=== PATIENT | female | born 1985 | race Caucasian/White ===

== ENCOUNTER → 2023-07-14 14:32 | Outpatient (CLI) | payer OTHER, MEDICAID, SELFPAY | PROVIDERS: PCP Physician Assistant; Visit Provider Physician Assistant | DX: R35.0 Frequency of micturition (principal) | CPT/HCPCS: 81002; 87086 ==

== ENCOUNTER → 2023-07-16 11:07 | Outpatient (CLI) | payer OTHER, MEDICAID, SELFPAY ==
[2023-07-16 20:49] LABS: Hematocrit 41.6 % (36-46); Hemoglobin 14.1 g/dL (12.0-16.0); Mean Corpuscular Hemoglobin 31.2 PG (26-34); Mean Corpuscular Volume 91.7 fL (80-100); Platelet Count 157 X10^3/uL (150-400); Red Blood Cell Count 4.53 X10^6/uL (4.0-5.2); Red Cell Distribution Width 12.9 % (11.6-14.8)
[2023-07-16 21:02] LABS: Alanine Aminotransferase 15 IU/L (<35); Albumin 4.2 g/dL (3.5-5.0); Albumin Globulin Ratio 1.5 (1.0-2.8); Alkaline Phosphatase 72 U/L (38-126); Aspartate Aminotransferase 25 IU/L (14-36); BUN Creatinine Ratio 10.1 (6-22); Bilirubin Total 0.5 mg/dL (0.2-1.3); Blood Urea Nitrogen 7 mg/dL (7-17); Calcium 8.9 mg/dL (8.4-10.2); Carbon Dioxide 25 mmol/L (22-32); Chloride 102 mmol/L (98-107); Estimated Glomerular Filt Rate > 60 mL/min (>60); Globulin 2.8 g/dL (1.7-4.1); Glucose 72 mg/dL (70-100); HEMOLYSIS 21 (0-50); Sodium 136 mmol/L (137-145)
[2023-07-16 21:29] LABS: TSH w/ Reflex to FT4 1.44 uIU/mL (0.47-4.68)
[2023-07-16 21:32] LABS: Neutrophils Absolute Manual 2720 /uL (3000-5900); Smudge Cells 1+; Total Cells Counted 100
[2023-07-16 21:33] LABS: Polychromasia 1+
== END ==
PROVIDERS: PCP Physician Assistant; Visit Provider Physician Assistant
DX: R35.0 Frequency of micturition (principal); R53.83 Other fatigue
CPT/HCPCS: 80053; 84443; 85025

== ENCOUNTER → 2023-07-22 12:05 | Outpatient (CLI) | payer OTHER, MEDICAID, SELFPAY ==
[2023-07-22 19:54] LABS: Hemoglobin 13.7 g/dL (12.0-16.0)
[2023-07-22 20:06] LABS: Hematocrit 39.9 % (36-46); Mean Corpuscular HGB Conc 34.2 % (30-36); Mean Corpuscular Hemoglobin 31.6 PG (26-34); Mean Corpuscular Volume 92.2 fL (80-100); Platelet Count 159 X10^3/uL (150-400); Red Blood Cell Count 4.33 X10^6/uL (4.0-5.2); Red Cell Distribution Width 12.7 % (11.6-14.8); White Blood Cell Count 5.1 X10^3/uL (4.5-11.0)
[2023-07-22 21:46] LABS: Neutrophils Absolute Manual 3417 /uL (3000-5900); RBC Morphology Normal Morphology; Total Cells Counted 100; WBC Morphology Comment Normal Morphology
== END ==
PROVIDERS: PCP Physician Assistant; Visit Provider Physician Assistant
DX: R79.89 Other specified abnormal findings of blood chemistry (principal)
CPT/HCPCS: 85025; 88184; 88185; 88189

== ENCOUNTER → 2023-07-29 17:05 | Outpatient (CLI) | payer OTHER, MEDICAID, SELFPAY | PROVIDERS: PCP Physician Assistant; Visit Provider Nurse Practitioner Adult Health | DX: Z11.3 Encounter for screening for infections with a predominantly sexual mode of transmission (principal) | CPT/HCPCS: 87491; 87591; 87661 ==

== ENCOUNTER → 2024-07-10 17:08 | Outpatient (CLI) | payer OTHER, MEDICAID, SELFPAY ==
--- NOTE | 2024-07-10 17:10 | DI.RAD.S_ITS ---
PROCEDURE: XR FOOT LT MIN 3V INDICATIONS: Left foot and ankle injury TECHNIQUE: 3 views of the foot were acquired. COMPARISON: [facility], CR, XR ANKLE LT MIN 3V, 07/10/2024, 17:09. FINDINGS: Bones: Postsurgical changes of arthrodesis of the left hindfoot without evidence for hardware failure or loosening. Moderate degenerative changes of the dorsal left midfoot and tibiotalar joint. Asymmetric widening of the anterior tibiotalar joint space felt to be chronic. Nondisplaced fracture of the distal left fibula better seen on dedicated evaluation of the ankle (please see separate report for further details). Soft tissues: No tibiotalar joint effusion. Achilles tendon appears normal. IMPRESSION: Status post arthrodesis of the left hindfoot without evidence for hardware complication. Degenerative changes of the tibiotalar and dorsal left midfoot. Please see separate report of the ankle for further details. Nondisplaced transverse distal fibular fracture better seen on the study. Dictated by: Francisco Harvey M.D. on 07/10/2024 at 18:11 Approved by: Francisco Harvey M.D. on 07/10/2024 at 18:13
--- NOTE | 2024-07-10 17:10 | DI.RAD.S_ITS ---
PROCEDURE: XR ANKLE LT MIN 3V INDICATIONS: Left foot and ankle injury TECHNIQUE: 3 views of the ankle were acquired. COMPARISON: [facility], , XR FOOT LT MIN 3V, 07/10/2024, 17:09. FINDINGS: Bones: There are postsurgical changes of arthrodesis of the left hindfoot. No evidence for hardware loosening or failure. Nondisplaced fracture of the lateral malleolus/distal fibula. Moderate degenerative changes of the tibiotalar joint. Minimal asymmetric widening of the anterior tibiotalar joint space is felt to be chronic. No associated joint effusion. Moderate degenerative changes of the dorsal left midfoot. Soft tissues: Lateral malleolar soft tissue swelling. No tibiotalar joint effusion. Achilles tendon appears normal. IMPRESSION: Nondisplaced lateral malleolar/distal fibular fracture. Status post arthrodesis of the left hindfoot without evidence for hardware complication. Advanced degenerative changes of the tibiotalar joint space with asymmetric anterior joint space widening which is felt to be chronic. Dorsal left midfoot degenerative changes. Dictated by: Francisco Harvey M.D. on 07/10/2024 at 18:08 Approved by: Francisco Harvey M.D. on 07/10/2024 at 18:11
== END ==
LOC: RAD 17:09
PROVIDERS: PCP Family Medicine; Referring Provider Physician Assistant Surgical; Visit Provider Physician Assistant Surgical
DX: S82.65XA Nondisplaced fracture of lateral malleolus of left fibula, initial encounter for closed fracture (principal); S99.912A Unspecified injury of left ankle, initial encounter; S99.922A Unspecified injury of left foot, initial encounter
CPT/HCPCS: 73610; 73630

== ENCOUNTER → 2024-07-24 10:45 | Outpatient (CLI) | payer OTHER, MEDICAID, SELFPAY ==
--- NOTE | 2024-07-24 10:46 | DI.RAD.S_ITS ---
PROCEDURE: XR ANKLE LT MIN 3V INDICATIONS: Follow up fibular fracture TECHNIQUE: 3 views of the ankle were acquired. COMPARISON: [facility], CR, XR ANKLE LT MIN 3V, 07/10/2024, 17:09. FINDINGS: Bones: Redemonstration of minimally displaced transverse oriented distal fibular tip. No significant bony bridging or callus formation visualized since prior radiograph 07/10/2024. Stable hindfoot postsurgical changes. Soft tissues: No tibiotalar joint effusion. Achilles tendon appears normal. IMPRESSION: Minimally displaced distal fibular tip fracture without significant interval healing. No new fracture identified. Approved by: Marcia Basurto M.D.,Ph.D. on 07/25/2024 at 22:40
== END ==
PROVIDERS: PCP Family Medicine; Referring Provider Family Medicine; Visit Provider Family Medicine
DX: S82.832D Other fracture of upper and lower end of left fibula, subsequent encounter for closed fracture with routine healing (principal)
CPT/HCPCS: 73610